=== PATIENT | female | born 1960 | race Caucasian/White ===

== ENCOUNTER 2020-01-08 12:49 | Emergency (ER) | payer BC, MEDICARE ==
[2020-01-08 13:02] VITALS: BP 145/85
--- NOTE | 2020-01-08 13:32 | ED Physician Documentation ---
PD HPI LOWER EXT INJURY - Stated complaint Stated Complaint: RT FOOT INJ - Chief complaint Chief Complaint: Trauma Ext - History obtained from History obtained from: Patient - History of Present Illness PD HPI LOW EXT INJURY LOCATION: Right, Foot Type of injury: Twist Where injury occurred: Home Timing - onset: Last night Timing - duration: Hours Timing - details: Abrupt onset, Still present Improved by: Rest, Immobilization Worsened by: Moving, Palpating Associated symptoms: Swelling. No: Weakness, Numbness, Tingling Contributing factors: No: Anticoagulated Similar symptoms before: Diagnosis (ankle sprain) Recently seen: Not recently seen - Additional information Additional information: Previously well 59-year-old female was walking down a set of steps last night when she got the last step she inverted her foot fell forward onto the foot. She has complaints of pain in the lateral aspect of the foot itself and over the anterior portion of the ankle. Review of Systems Constitutional: denies: Fever Eyes: denies: Decreased vision Ears: denies: Ear pain Nose: denies: Congestion Throat: denies: Sore throat Cardiac: denies: Chest pain / pressure, Palpitations Respiratory: denies: Dyspnea, Cough GI: denies: Vomiting PD PAST MEDICAL HISTORY - Past Medical History Musculoskeletal: Osteoarthritis - Past Surgical History Past Surgical History: Yes /BUNDLER: section, Hysterectomy - Present Medications Home Medications: Ambulatory Orders Medication Instructions Recorded Confirmed Estradiol Micronized [Estradiol] 1,000 gm MC 12/30/12 12/30/12 oxyCODONE/ACET 5/325 [Percocet 5 2 each PO Q6H #25 tablet 12/30/12 mg/325 mg] HYDROcod/ACETAM 5/325 [[place] 5/325] 1 - 2 each PO Q6H PRN #8 tablet 01/08/20 - Allergies Allergies/Adverse Reactions: Allergies Allergy/AdvReac Type Severity Reaction Status Date / Time Penicillins Allergy Intermediate Hives Verified 01/08/20 12:53 bee venom protein (honey bee) Allergy Anaphylaxis Verified 01/08/20 12:53 - Social History Does the pt smoke?: No Smoking Status: Never smoker Does the pt drink ETOH?: Yes Does the pt have substance abuse?: No - Immunizations Immunizations are current?: Yes - POLST Patient has POLST: No PD ED PE NORMAL - Vitals Vital signs reviewed: Yes (hypertensive) - General General: Alert and oriented X 3, No acute distress - HEENT HEENT: Atraumatic, PERRL, EOMI - Respiratory Respiratory: No respiratory distress - Derm Derm: Normal color, Warm and dry, No rash - Extremities Extremities: No deformity, No edema, Other (There is specific point tenderness to the proximal fifth metatarsal on the right foot. There is minimal swelling associated with this and there is some tenderness over the talofibular ligament on the right side. No point tenderness to medial or lateral malleolus. Able to bear weight walk 3 steps. 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 Healed fractures of the distal second third and fourth metatarsals.), EMP read indepedently, See rad report PD MEDICAL DECISION MAKING - ED course Complexity details: reviewed results, re-evaluated patient, considered differential, d/w patient ED course: 59-year-old female has sprained her foot stepping down off of a step and she has been unable to sleep at night secondary to the pain. We have placed her into a walking boot and will provide some limited narcotic for use at night. Departure - Departure Disposition: 01 Home, Self Care Clinical Impression: Right foot sprain Qualifiers: Encounter type: initial encounter Qualified Code(s): S93.601A - Unspecified sprain of right foot, initial encounter Condition: Stable Instructions: ED Sprain Foot Follow-Up: Your, doctor [Other] Prescriptions: HYDROcod/ACETAM 5/325 [[place] 5/325] 1 - 2 each PO Q6H PRN #8 tablet PRN Reason: Pain
--- NOTE | 2020-01-08 13:48 | XRAY Report ---
PROCEDURE: Foot 3 View RT INDICATIONS: proximal 5th tender TECHNIQUE: 3 views of the foot were acquired. COMPARISON: 12/30/2012 FINDINGS: Bones: In this patient with this given history, scrutiny is given to proximal fifth metatarsal. No f ractures can be seen at this site. No acute fractures are seen elsewhere. Healed fractures are seen i nvolving the distal second, third, and fourth metatarsals. No dislocations. No suspicious bony lesio ns. Soft tissues: No tibiotalar joint effusion. Achilles tendon appears normal. IMPRESSION: Unremarkable plain film study, without a fifth metatarsal fracture seen. Healed fractures of the distal second, third, and fourth metatarsals. Reviewed by: Braxton Mcclendon MD on 01/08/2020 12:47 PM AWA Approved by: Braxton Mcclendon MD on 01/08/2020 12:47 PM AWA Station ID: [id number]
== END 2020-01-08 14:14 | disposition home or self-care (01) ==
LOC: ED 12:49
DX: S93.601A Unspecified sprain of right foot, initial encounter (principal); W10.9XXA Fall (on) (from) unspecified stairs and steps, initial encounter; Y92.009 Unspecified place in unspecified non-institutional (private) residence as the place of occurrence of the external cause; R03.0 Elevated blood-pressure reading, without diagnosis of hypertension
CPT/HCPCS: 99283; 99284

== ENCOUNTER 2022-12-25 15:31 | Emergency (ER) | payer MEDICARE, OTHER ==
[2022-12-25] MEDS ORDERED: methylPREDNISolone SUCCINATE 125 MG/2 ML VIAL IVP STA (16:02)
[2022-12-25] MEDS ORDERED: FAMOTIDINE 20 MG/2 ML VIAL IVP STA (16:02)
--- NOTE | 2022-12-25 16:05 | ED Physician Documentation ---
History of Present Illness - Stated complaint Stated Complaint: BEE STING - Chief complaint Chief Complaint: Allergic Rx - Additonal information Additional information: 62-year-old female presents the emergency department for evaluation after a bee sting. 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 She was stung 3 times while picking blackberries at 2:30 PM. About 3 PM that she did take her EpiPen. She also took 50 mg of Benadryl. She reports needing to be hospitalized multiple times in the past for anaphylaxis. She is requesting Steroids. On presentation she is alert well-appearing. She has no tongue or lip swelling. No chest pain or shortness of air. Review of Systems Constitutional: reports: Reviewed and negative Nose: reports: Reviewed and negative Cardiac: reports: Reviewed and negative Respiratory: reports: Reviewed and negative GI: reports: Reviewed and negative Skin: reports: Bite / sting PD PAST MEDICAL HISTORY - Past Medical History Musculoskeletal: Osteoarthritis - Past Surgical History Past Surgical History: Yes /FOURTH HAND: section, Hysterectomy - Present Medications Home Medications: Ambulatory Orders Medication Instructions Recorded Confirmed Estradiol Micronized [Estradiol] 1,000 gm MC 12/30/12 12/30/12 oxyCODONE/ACET 5/325 [Percocet 5 2 each PO Q6H #25 tablet 12/30/12 mg/325 mg] HYDROcod/ACETAM 5/325 [[place] 5/325] 1 - 2 each PO Q6H PRN #8 tablet 01/08/20 EPINEPHrine [Epinephrine] 0.3 mg IJ ONCE PRN #1 each 12/25/22 predniSONE [Deltasone] 40 mg PO DAILY 4 Days #8 tablet 12/25/22 - Allergies Allergies/Adverse Reactions: Allergies Allergy/AdvReac Type Severity Reaction Status Date / Time Penicillins Allergy Intermediate Hives Verified 12/25/22 15:45 bee venom protein (honey bee) Allergy Anaphylaxis Verified 12/25/22 15:45 - Social History Does the pt smoke?: No Smoking Status: Never smoker Does the pt drink ETOH?: Yes Does the pt have substance abuse?: No - Immunizations Immunizations are current?: Yes - POLST Patient has POLST: No PD ED PE NORMAL - General General: Alert and oriented X 3, No acute distress, Well developed/nourished - HEENT HEENT: Atraumatic, Ears normal, Moist mucous membranes, Pharynx benign - Neck Neck: Supple, no meningeal sign, No adenopathy - Cardiac Cardiac: RRR, No murmur - Respiratory Respiratory: No respiratory distress, Clear bilaterally - Abdomen Abdomen: Normal bowel sounds, Soft - Derm Derm: Normal color, Warm and dry, Other (Bee stings on each ankle and on the thenar eminence of the left hand. 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 Eye Opening: Spontaneous Motor: Obeys Commands Verbal: Oriented GCS Score: 15 Results - Vitals Vitals: Vital Signs - 24 hr 12/25/22 12/25/22 12/25/22 15:45 16:18 16:30 Temperature 37.1 C Heart Rate 96 80 84 Respiratory 18 14 Rate Blood Pressure 123/79 124/81 H O2 Saturation 98 100 12/25/22 12/25/22 17:57 19:25 Temperature Heart Rate 75 75 Respiratory 15 15 Rate Blood Pressure O2 Saturation 99 98 Oxygen O2 Source Room air Departure - Departure Disposition: 01 Home, Self Care Clinical Impression: Anaphylactic reaction to bee sting Qualifiers: Encounter type: initial encounter Injury intent: accidental or unintentional Q ualified Code(s): T63.441A - Toxic effect of venom of bees, accidental (unintentional), initial encounter Condition: Stable Prescriptions: predniSONE [Deltasone] 40 mg PO DAILY 4 Days #8 tablet EPINEPHrine [Epinephrine] 0.3 mg IJ ONCE PRN #1 each PRN Reason: Anaphylaxis Comments: You were seen today after a bee sting. You do have a history of anaphylaxis to bee sting and you began to feel Milind to have similar symptoms so you took your epinephrine at home. This was the right choice. I am here in the emergency department we have observed you for several hours and you have no evidence of anaphylaxis redeveloping. I have sent a prescription for prednisone to the [facility] in [place]. Please fill and begin taking daily for the next 4 days. I also recommend that you take Benadryl 25 mg twice daily for the next several days. I have also refilled your EpiPen. Return to the ER for any new or worsening symptoms Forms: PCP List
[2022-12-25 20:06] VITALS: BP 117/77
== END 2022-12-25 20:02 | disposition home or self-care (01) ==
LOC: ED 15:31
DX: T63.441A Toxic effect of venom of bees, accidental (unintentional), initial encounter (principal)
CPT/HCPCS: 96374; 96375; 99283

== ENCOUNTER 2023-10-27 17:14 | Outpatient (CLI) | payer MEDICARE ==
--- NOTE | 2023-10-28 15:30 | Ultrasound Report ---
PROCEDURE: Renal (Retroperitoneal) INDICATIONS: RECURRENT UTIS TECHNIQUE: Real-time scanning was performed of the retroperitoneal organs, with image documentation. COMPARISON: CT abdomen pelvis 10/16/2023 FINDINGS: Kidneys: Kidneys are normal in size. Right kidney measures 10.3 cm long; left kidney measures 10.2 cm long. Right renal cortical thickness is 0.9 cm; left renal cortical thickness is 1.4 cm. No sundar d masses or hydronephrosis. Unchanged left renal stone as previously identified. Bladder: Pre-void bladder volume is 321 mL. Post-void residual is 40 mL. Pre-void images demonstra te no intraluminal masses or stones. On pre-void images, bilateral ureteral jets are noted with colo r Doppler interrogation. (Of note, ureteral jets may not be detectable in up to 25% of cases due to insufficient differences in specific gravity between ureteral and bladder urine). Miscellaneous: No free abdominal fluid. IMPRESSION: Nonobstructing left renal stone. Reviewed by: Janie Ramirez MD on 10/28/2023 3:29 PM PDT Approved by: Janie Ramirez MD on 10/28/2023 3:29 PM PDT Station ID: [id number]
== END 2023-10-27 17:15 | disposition home or self-care (01) ==
LOC: DI 17:14
PROVIDERS: ATTEND Urology
DX: N20.0 Calculus of kidney (principal)

== ENCOUNTER 2023-10-29 08:00 | Outpatient (CLI) | payer MEDICARE | END 2023-10-29 23:59 | disposition home or self-care (01) | LOC: LAB 08:00 | PROVIDERS: ATTEND Urology | DX: Z87.440 Personal history of urinary (tract) infections (principal) | CPT/HCPCS: 87086 ==

== ENCOUNTER 2023-12-12 10:56 | Outpatient (CLI) | payer MEDICARE, OTHER ==
--- NOTE | 2023-12-15 09:39 | Ultrasound Report ---
LIMITED ULTRASOUND OF LEFT BREAST: 12/12/2023 CLINICAL: Palpable left breast lump. Comparison is made to exams dated: 12/12/2023 mammogram - [facility], 09/08/2020 [facility] mogram, 03/29/2019 mammogram, 04/30/2018 mammogram, 04/30/2018 ultrasound, and 07/25/2016 mammogram - [facility]. Real-time ultrasound of the left breast 3-4 o'clock region was performed. Sorensen scale images of the real-time examination were reviewed. No significant abnormalities were seen sonographically in the left breast. IMPRESSION: NEGATIVE There is no sonographic evidence of malignancy. There is no abnormality seen in the left breast to correspond with the biopsy marker in the posterior depth, however, recommend clinical follow up for persistent or worsening symptoms, or development of any clinically suspicious findings. A 1 year screening mammogram is recommended. Findings and recommendations were conveyed to the patient during today's evaluation. This exam was interpreted at Station ID: [id number]. Electronically Signed By: Ga Wood M.D. aty/:12/12/2023 12:16:07 Ultrasound BI-RADS: 1 Negative BI-RADS CATEGORY: (1) - 1 RECOMMENDATION: (ANNUAL) - Recommend routine annual screening mammography. [id number] 1 year screening LATERALITY: (B)
--- NOTE | 2023-12-15 09:39 | Mammography Report ---
BILATERAL DIGITAL DIAGNOSTIC MAMMOGRAM 3D/2D WITH AUGMENTATION: 12/12/2023 CLINICAL: History of fibrous tissue in left breast. Due for bilateral exam. Comparison is made to exams dated: 09/08/2020 mammogram, 03/29/2019 mammogram, 04/30/2018 mammogram, ultrasound, and 07/25/2016 mammogram - [facility]. Both breasts are heterogeneously dense, which may obscure small masses (category c / 51-75% glandular tissue). No significant masses, calcifications, or other findings are seen in either breast. Biopsy marker no nestor in the left breast outer aspect near the 3-4 o'clock posterior depth. IMPRESSION: INCOMPLETE: NEEDS ADDITIONAL IMAGING EVALUATION There is no abnormality seen in the left breast to correspond with the area of clinical concern at 3 o'clock in the posterior depth reported as correlating to the previous biopsy site, however, ultrasou nd is recommended for further evaluation and is scheduled to immediately follow this examination. Based on the Tyrer Cuzick model (a risk assessment model) the patient's lifetime risk is 8.9% and her 10 year risk is 3.8%. According to the ACR, ACS, and NCCN guidelines, an annual breast MRI exam karthik g with mammogram is recommended if the patient's lifetime risk is 20% or greater. This exam was interpreted at Station ID: [id number]. NOTE: For mammograms, a report in lay terms will be sent to the patient. Approximately 15% of breast malignancies will not be visualized mammographically. In the management of a palpable breast mass, a negative mammogram must not discourage biopsy of a clinically suspicious lesion. Electronically Signed By: Ga Wood M.D. aty/:12/12/2023 12:11:05 ACR BI-RADS Category 0: Incomplete [id number] PARENCHYMAL PATTERN: (D) - The breast(s) demonstrate(s) heterogeneously dense fibroglandular parclemente lowry. BI-RADS CATEGORY: (0) - 0 Ultrasound [id number] Immediate follow-up LATERALITY: (L)
== END 2023-12-12 10:57 | disposition home or self-care (01) ==
LOC: DI 10:56
PROVIDERS: ATTEND Student in an Organized Health Care Education/Training Program
DX: N60.29 Fibroadenosis of unspecified breast (principal); R92.8 Other abnormal and inconclusive findings on diagnostic imaging of breast; R92.333 Mammographic heterogeneous density, bilateral breasts